=== PATIENT | female | born 1960 | race Caucasian/White ===

== ENCOUNTER 2016-05-21 08:45 | Emergency (ER) | payer SELFPAY ==
[~2016-05-21] VITALS: Ht 152.4 cm; Wt 86.0 kg
[~2016-05-21 08:45] MED LIST: BACTRIM,SEPT1 TABLET PO; CIPRO500 MG PO; DELTASONE20 M1 PO; DEXILANT60 MG PO; FLAGYL500 MG PO; HYDROCODON-ACE1 EAC7 PO; LEVAQUIN500 MG PO; LEVOXYL175 MCG PO; PERCOCET 5/31 TABLET PO; PHENERGAN-CODE120 ML PO; SYNTHROID175 MCG PO; ZITHROMAX Z-PA250 MG PO; ZYRTEC10 M3 PO
[2016-05-21 09:05] VITALS: BP 138/67
[2016-05-21] MEDS ORDERED: SYNTHROID125 MCG PO (09:11)
[2016-05-21] MEDS ORDERED: TYLENOL REGULA325 MG PO (09:12)
[2016-05-21] MEDS ORDERED: MUCINEX FAST-M360 M1 PO (09:12)
[2016-05-21] MEDS ORDERED: ZITHROMAX Z-PA250 MG PO (09:46)
[2016-05-21] MEDS ORDERED: VENTOLIN HFA18 GM IH (09:46)
== END 2016-05-21 10:08 | disposition home or self-care (01) ==
LOC: EME 08:45
DX: J40 Bronchitis, not specified as acute or chronic (principal); J32.9 Chronic sinusitis, unspecified; Z88.6 Allergy status to analgesic agent
CPT/HCPCS: 99281; 99283